=== PATIENT | female | born 1940 | race Caucasian/White ===

== ENCOUNTER 2023-10-09 12:51 | Outpatient (AMB) | payer OTHER, SELFPAY ==
[2023-10-09 12:57] VITALS: BP 126/72; PULSE 80; TEMP 36.1; O2SAT 99; BMI 26.9
--- NOTE | 2023-10-09 12:57 | AM.OFFWIN_ITS ---
Intake Vital Signs 10/09/23 12:57 Height 4 ft 11 in Weight 133 lb BMI 26.9 BP 126/72 Blood Pressure Location Lt brachial Position Sitting Pulse 80 Pulse Source Pulse Oximeter Temp 97.0 F Temp Source Temporal Artery Scan Pulse Oximetry (%) 99 Oxygen Delivery Method Room Air Intake Visit Reasons: ASSEMBLER cough, sob, mucus Intake Note: pt is here today for cough sob mucus started 3 days ago Patient Tobacco Use Status: Never used Tobacco Allergies amoxicillin Allergy (Mild, Verified 10/09/23 13:02) sores Do you need a note to return to daycare/school/sports/work: No HPI HPI Comments History of Present Illness Details 82 y/o female patient who presents to [facility] clinic with c/o productive cough, SOB and chest congestion x 3 days. Pt denies chronic lung conditions. She was seen by her PCP 3 months ago for similar symptoms. She was then treated with Z-pack and steroids. PFS Social History Patient Tobacco Use Status: Never used Tobacco Review of Systems Const All systems reviewed & are unremarkable except as noted in HPI and below Physical Exam Vital Signs: Last Vital Signs Temp 97.0 F 10/09/23 12:57 Pulse 80 10/09/23 12:57 BP 126/72 10/09/23 12:57 Pulse Ox 99 10/09/23 12:57 Oxygen Delivery Method Room Air 10/09/23 12:57 BMI result Body Mass Index 26.9 Const General: comfortable and no acute distress Nutritional Appearance: overweight Orientation/consciousness: patient oriented x3 HEENT Head: Yes normocephalic Ears: external ears normal General nose exam: Normal nasal mucous membranes and turbinates present Face and sinus: Yes sinuses nontender Mouth: moist mucous membranes Throat: Yes posterior oropharynx normal Resp Effort & Inspection: normal respiratory effort and Actively coughing Auscultation: no crackles, no rales, rhonchi and wheezes Cardio Rate: regular rate Rhythm: regular rhythm Neuro General: patient oriented x3, gait normal and moves all extremities Psych Speech and movement: Normal speech and movement present Assessment & Plan Assessment & Plan (1) Cough in adult: Code(s): R05.9 - Cough, unspecified Plan: - Chest Xray - Take medications as directed - F/U with PCP Orders: Orders XR chest 2V Today R05.9 - Cough, unspecified Medications: New azithromycin 500 mg PO DAILY 3 days 3 tabs 0RF cough R05.9 - Cough, unspecified doxycycline hyclate 100 mg PO BID 10 days 20 caps 0RF R05.9 - Cough, unspecified prednisone 50 mg PO DAILY 5 days 5 tabs 0RF cough R05.9 - Cough, unspecified benzonatate 100 mg PO TID 30 caps 0RF cough R05.9 - Cough, unspecified fluticasone propion-salmeterol 100-50 mcg/dose (Advair Diskus) 1 inh inhalation BID 60 ea 0RF Wheezing R05.9 - Cough, unspecified, R06.2 - Wheezing Coding Level of Care Code New Pt Level 4 (66877) Diagnoses Cough in adult R05.9 Time Spent (min) 20
== END 2023-10-09 14:23 | disposition home or self-care (01) ==
PROVIDERS: Visit Provider Nurse Practitioner Family
DX: R05.9 Cough, unspecified (principal)
CPT/HCPCS: 99204

== ENCOUNTER 2023-10-09 13:25 | Outpatient (REF) | payer OTHER, SELFPAY ==
--- NOTE | ~2023-10-09 | XR_ITS ---
EXAMINATION: XR CHEST CLINICAL INFORMATION: Cough unspecified COMPARISON: None available. TECHNIQUE: 2 views of the chest were obtained. FINDINGS: Moderate cardiomegaly with normal caliber pulmonary vessels. No pleural effusion. Lungs grossly are clear. The aorta is quite tortuous. XR/XR chest 2V IMPRESSION: Chronic changes observed. No active disease. No consolidations are seen.
== END 2023-10-09 13:26 | disposition home or self-care (01) ==
LOC: HO.HMGCX 13:25
PROVIDERS: PCP Nurse Practitioner Family; Visit Provider Nurse Practitioner Family
DX: R05.9 Cough, unspecified (principal)
CPT/HCPCS: 71046

== ENCOUNTER 2025-04-15 18:12 | Emergency (ER) | payer OTHER, SELFPAY ==
--- NOTE | ~2025-04-15 | XR_ITS ---
CLINICAL HISTORY: cough 1 view chest x-ray. Comparison: 10/09/2023 Findings: No consolidation or effusion. Cardiac and mediastinal contours appear stable. Bones reveal similar significant dextroconvex curvature of the lower thoracic spine. Impression: 1. No acute pulmonary disease. This document has been electronically signed by: Faisal Willis MD on 04/15/2025 19:15:36
[2025-04-15 18:41] VITALS: BP 158/89; PULSE 83; RESP 18; TEMP 36.7; O2SAT 93; BMI 24.6
--- NOTE | 2025-04-15 18:42 | ED_ITS ---
HPI - SOB/Dyspnea General Chief Complaint: General Medical Stated Complaint: flu +, shortness of breath Time Seen by Provider: 04/15/25 21:03 Source: patient and family Mode of arrival: ambulatory Limitations: no limitations History of Present Illness ED Provider: Dr. Isadora Short HPI Narrative: Patient comes to the emergency room complaining of cough and wheezing for several weeks. Patient states that she was recently diagnosed with influenza A. Patient states that her PCP sent prednisone and albuterol inhalers to the pharmacy. Patient continuous coughing. Patient states that the prednisone did not mix well with her sulfasalazine and has had a lot of diarrhea. Patient states that she stopped taking prednisone. Patient states that the main reason she came is because her PCP asked her to come to get checked to make sure that she is okay. Related Data Home Medications ?Medication ?Instructions ?Recorded ?Confirmed losartan 50 mg-hydrochlorothiazide 1 tab PO DAILY 09/26 07/19 12.5 mg tablet sulfasalazine 500 mg tablet 1,000 mg PO BID 10/09/23 Previous Rx's ?Medication ?Instructions ?Recorded azithromycin 500 mg tablet 500 mg PO DAILY cough 3 day s #3 10/09/23 tabs benzonatate 100 mg capsule 100 mg PO TID cough #30 cap s 10/09/23 doxycycline hyclate 100 mg capsule 100 mg PO BID 10 da ys #20 caps 10/09/23 fluticasone 100 mcg-salmeterol 50 1 inh inhalation BID Wheezing #60 10/09/23 mcg/dose blistr powdr for ea inhalation (Advair Diskus) prednisone 50 mg tablet 50 mg PO DAILY cough 5 days #5 tabs 10/09/23 budesonide 180 mcg/actuation 1 inh inhalation BID #1 e a 04/15/25 breath activated powder inhaler Allergies Allergy/AdvReac Type Severity Reaction Status Date / Time amoxicillin Allergy Mild sores Verified 04/15/25 18:42 Review of Systems 2 Review of Systems: Constitutional : No Weight loss, No Fever, No Chills, No Night Sweats, No Fatigue, No Malaise ENT/Mouth : No Hearing loss, No Ear Pain, No Nasal Congestion, No Sinus Pain, No Hoarseness, No sore throat, No Rhinorrhea, No Swallowing Difficulty Eyes: No Eye Pain, No Swelling, No Redness, No Foreign Body, No Discharge, No Vision Changes Cardiovascular : No Chest Pain, No SOB, No Dyspnea on Exertion, No Orthopnea, No Edema, No Palpitations Respiratory : Cough, wheezing No Smoke Exposure, No Dyspnea Gastrointestinal : No Nausea, No Vomiting, No Diarrhea, No Constipation, No abdominal Pain, No Hematochezia, No Melena Genitourinary : no irregular bleeding, No Dysuria, No Urinary Frequency, No Hematuria, No Urinary Incontinence, No Urgency, No Flank Pain, No Urinary Flow Changes, No Hesitancy Musculoskeletal : No joint pain, No Myalgias, No Joint Swelling Skin : No Skin Lesions, No rash Neuro : No Weakness, No Numbness, No Paresthesias, No Loss of Consciousness, No Dizziness, No Headache Psych : No Anxiety/Panic, No Depression, No SI/HI/AH/VH, No Social Issues, Heme/Lymph: No Bruising, No Bleeding,No Lymphadenopathy Endocrine : No Polyuria, No Polydipsia, No Temperature Intolerance [facility] Social History Social History Patient Tobacco Use Status: Never used Tobacco Advance Directives: No Advance Directives Information Provided: No Do you have a plan to hurt others: No Plan Physical Exam 2 Exam: Exam: Appearance: Alert. Oriented X3. No acute distress. Eyes: Pupils equal, round and reactive to light. ENT: Pharynx normal. Neck: Normal inspection. Neck supple. No lymph nodes noted. No crepitus CVS: Normal heart rate and rhythm. Pulses normal. Normal S1 and S2 Respiratory: No respiratory distress. Breath sounds normal. No Wheezing. No rales Abdomen: Soft and nontender. No rigidity. No distention. Skin: Skin warm and dry. Normal skin color. Normal skin turgor. Extremities: No lower extremity edema. No Lacerations. No Rash Neuro: Oriented X 3. No motor deficit. No sensory deficit. Moving all extremities. No slurred speech. CN 2 through 12 grossly intact Psych: calm, cooperative, normal affect Vital Signs: Vital Signs: Last Vital Signs Temp 98.3 F 04/15/25 21:00 Pulse 81 04/15/25 21:00 Resp 20 04/15/25 21:00 BP 163/93 H 04/15/25 21:00 Pulse Ox 96 04/15/25 21:00 O2 Del Method Room Air 04/15/25 21:00 BMI result Body Mass Index 24.6 Course Course Course Narrative: This is a Rapid Medical Exam performed in triage by More Eckert PA-C. Full HPI, ROS and PE to be performed by primary ED provider. 84 yo F presenting to the ED c/o Influenza A positive as of Friday (seen by PCP) - reports continued cough, wheezing - sent in by PCP for further eval PE: NAD, n ontoxic appearing, talking in complete sentences Plan: EKG, Labs, CXR Medical Decision Making Medical Decision Making [facility] Narrative: Interpretation of EKG: Sinus rhythm, heart rate 78, no ST segment patient elevation, nonspecific T-wave inversion, QTC 428 My interpretation of labs: No significant abnormality in patient's hematology chemistry, troponin negative Chest x-ray shows no acute pulmonary disease At this time, patient had no wheezing, no shortness of breath, oxygen saturation 99% on room air. Patient declined any cough medication. To decrease the use of albuterol, patient was offered a budesonide inhaler, discussed with the patient that she needs to swish and spit/remains her mouth. Patient states that she has had in the past did not have any adverse effects. Patient agrees with plan. Lab Data [facility] Lab Attestation statement: I reviewed the patient's lab results. 04/15/25 19:23 04/15/25 19:23 Labs: Lab Results 04/15/25 Range/Units 19:23 WBC 4.4 L (4.8-10.8) X10*3/uL RBC 4.19 L (4.20-5.50) X10*6/uL Hgb 12.4 (12.0-16.0) g/dl Hct 35.8 L (37.0-47.0) % MCV 85.4 (80.0-98.0) fL MCH 29.6 (27.0-33.0) pg MCHC 34.6 (31.0-35.0) g/dl RDW 13.6 (11.0-16.0) % Plt Count 198 (160-400) X10*3/uL MPV 10.0 (9.4-12.3) fL Immature Gran % (Auto) 0.2 (0.0-0.4) % Neut % (Auto) 39.8 L (45-73) % Lymph % (Auto) 45.9 H (20-40) % Cache % (Auto) 13.1 H (2-11) % Eos % (Auto) 0.5 (0-4) % Baso % (Auto) 0.5 (0-2) % Lymph # (Auto) 2.0 (1.2-4.9) X10*3/uL Cache # (Auto) 0.6 (0.1-1.2) X10*3/uL Eos # (Auto) 0.0 (0.0-0.4) X10*3/uL Baso # (Auto) 0.0 (0.0-0.2) X10*3/uL Abs Immat Gran (auto) 0.01 (0.00-0.03) X10*3/uL Absolute Neuts (auto) 1.7 L (2.0-8.3) x10*3/uL Absolute Nucleated RBC 0.000 (0.0-0.012) X10*3/uL Nucleated RBC % (auto) 0.0 (0.0-0.2) /100WBC Sodium 139 (135-145) mmol/L Potassium 3.9 (3.3-5.1) mmol/L Chloride 105 (96-108) mmol/L Carbon Dioxide 26 (22-29) mmol/L Anion Gap 12 (12-20) BUN 14 (9-16) mg/dL Creatinine 0.67 (0.5-1.4) mg/dL Estim Creat Clear Calc 52.5 Estimated GFR > 60 Random Glucose 91 (60-115) mg/dL Calcium 9.1 (8.4-10.2) mg/dL Magnesium 2.0 (1.6-2.6) mg/dL Total Bilirubin 0.4 (0.0-1.0) mg/dL Direct Bilirubin 0.1 (0.0-0.5) mg/dL AST 28 (5-31) U/L ALT 26 (0-31) U/L Alkaline Phosphatase 79 (39-117) U/L Troponin I High Sens 11.7 (<3.5-17.0) ng/L Total Protein 6.7 (6.5-8.0) g/dL Albumin 4.3 (3.5-5.0) g/dL Independent Interpretation I performed an independent interpretation of an: EKG and Plain X-Ray Radiology Impression Discussion of test interpretation with radiology: I have reviewed the radiologist's reading. Radiologist Impression: No consolidation or effusion. Cardiac and mediastinal contours appear stable. Bones reveal similar significant dextroconvex curvature of the lower thoracic spine. Discharge Plan Discharge Clinical Impression: Bronchitis Patient Disposition: Home, Self-Care Instructions: Acute Bronchitis (ED) Additional Instructions: Please follow-up with your primary care physician tomorrow. If you have any worsening or new symptoms, please return to the emergency room or call 911 Prescriptions: New budesonide 180 mcg/actuation aerosol powdr breath activated 1 inh inhalation BID Qty: 1 0RF No Action losartan-hydrochlorothiazide 50-12.5 mg tablet 1 tab PO DAILY sulfasalazine 500 mg tablet 1,000 mg PO BID azithromycin 500 mg tablet 500 mg PO DAILY 3 Days Qty: 3 0RF doxycycline hyclate 100 mg capsule 100 mg PO BID 10 Days Qty: 20 0RF prednisone 50 mg tablet 50 mg PO DAILY 5 Days Qty: 5 0RF benzonatate 100 mg capsule 100 mg PO TID Qty: 30 0RF fluticasone propion-salmeterol [Advair Diskus] 100-50 mcg/dose blister with device 1 inh inhalation BID Qty: 60 0RF Print Language: Ukrainian
--- NOTE | 2025-04-15 18:44 | ECG_ITS ---
Test Reason : sob Blood Pressure : */* mmHG Vent. Rate : 78 BPM Atrial Rate : 78 BPM P-R Int : 120 ms QRS Dur : 72 ms QT Int : 376 ms P-R-T Axes : 20 -28 35 degrees QTcB Int : 428 ms Normal sinus rhythm Nonspecific ST abnormality Abnormal ECG No previous ECGs available Referred By: More Eckert Electronically Signed By: Valdez Colindres
[2025-04-15 19:30] LABS: MANUAL DIFF FLAG NO
[2025-04-15 19:31] LABS: Hematocrit 35.8 % (37.0-47.0); Hemoglobin 12.4 g/dl (12.0-16.0); Imm Gran Abs Auto 0.01 X10*3/uL (0.00-0.03); Imm Gran Pct Auto 0.2 % (0.0-0.4); Lymphocytes Absolute Auto 2.0 X10*3/uL (1.2-4.9); Mean Corpuscular HGB Conc 34.6 g/dl (31.0-35.0); Mean Corpuscular Hemoglobin 29.6 pg (27.0-33.0); Mean Corpuscular Volume 85.4 fL (80.0-98.0); NRBC Abs Auto 0.000 X10*3/uL (0.0-0.012); NRBC Pct Auto 0.0 /100WBC (0.0-0.2); Platelet Count 198 X10*3/uL (160-400); Red Blood Count 4.19 X10*6/uL (4.20-5.50); White Blood Count 4.4 X10*3/uL (4.8-10.8)
[2025-04-15 19:55] LABS: Troponin-I High Sensitivity 11.7 ng/L (<3.5-17.0)
[2025-04-15 20:02] LABS: Alanine Aminotransferase 26 U/L (0-31); Albumin Level 4.3 g/dL (3.5-5.0); Alkaline Phosphatase 79 U/L (39-117); Anion Gap 12 (12-20); Aspartate Amino Transferase 28 U/L (5-31); Blood Urea Nitrogen 14 mg/dL (9-16); Calcium 9.1 mg/dL (8.4-10.2); Carbon Dioxide 26 mmol/L (22-29); Chloride 105 mmol/L (96-108); Creatinine Clr Calc Pharmacy 52.5; Estimated Glomerular Filt Rate > 60; Magnesium 2.0 mg/dL (1.6-2.6); Potassium 3.9 mmol/L (3.3-5.1); Sodium 139 mmol/L (135-145); Total Protein 6.7 g/dL (6.5-8.0)
[2025-04-15 21:00] VITALS: BP 163/93; PULSE 81; RESP 20; TEMP 36.8; O2SAT 96
--- OUTSIDE RECORDS SUMMARY | 2025-04-15 21:03 | XMS_ITS | Encounter Summary ---
Author Organization [facility] Address [address] [facility] [address] [place] [address] Phone Care Team Providers Care Animal Treatment Investigator Name Role Phone Giovanna Almeida NP Primary Care Provider [phone]- [phone] Encounter Details Date Type Department Care Team (Latest Contact Info) Description 04/30/2018 Transcribe Orders [facility] [place] [address] [place] [address] Gwyn Cardenas MD [address] [address] [email or web address] Colitis (Primary Dx) Social History Tobacco Use Types Packs/Day Years Used Date Smoking Tobacco: Never Assessed Comments Unknown Sex and Gender Information Value Date Recorded Sex Assigned at Not on file Legal Sex Female 1:42 PM EST Gender Identity Not on file Sexual Orientation Not on file documented as of this encounter Plan of Treatment Not on file documented as of this encounter Results * C-Reactive Protein (04/30/2018 1:49 PM EST) C REACTIVE PROTEIN 3.3 0.0 - 4.0 mg/L [facility] Blood 04/30/2018 1:49 PM EST 04/30/2018 1:53 PM EST us Gwyn Cardenas MD LAB BLOOD BKR ORDERABLES Final Result [facility] [address] [place] [address] * Comprehensive metabolic panel (04/30/2018 1:49 PM EST) SODIUM 142 133 - 146 mmol/L [facility] POTASSIUM 4.1 3.3 - 5.1 mmol/L [facility] CHLORIDE 104 96 - 108 mmol/L [facility] CO2 26 21 - 35 mmol/L [facility] BUN 18 6 - 19 mg/dL [facility] CREATININE 0.50 0.5 - 1.5 mg/dL [facility] GLUCOSE 89 70 - 99 mg/dL [facility] ALBUMIN 4.4 3.9 - 4.8 g/dL [facility] TOTAL PROTEIN 6.8 6.5 - 8.0 g/dL [facility] CALCIUM 9.8 8.4 - 10.3 mg/dL [facility] ALKALINE PHOSPHATASE 72 39 - 117 U/L [facility] TOTAL BILIRUBIN 0.4 0.0 - 1.2 mg/dL [facility] AST 15 0 - 37 U/L [facility] ALT 13 0 - 40 U/L [facility] GLOBULIN 2.4 1 - 4.8 g/dL [facility] EGFR 94 >59 mL/min/1.7 3m2 [facility] Comment:If patient is black, multiply result by 1.159. Estimated glomerular filtration rate calculated using the CKD-EPI equation. ANION GAP 16 10 - 20 mmol/L [facility] Blood 04/30/2018 1:49 PM EST 04/30/2018 1:53 PM EST us Gwyn Cardenas MD LAB BLOOD BKR ORDERABLES Final Result Performing Organization Address City/State/[facility] Co de Phone Number [address] [address] * CBC (04/30/2018 1:49 PM EST) WBC 6.55 3.40 - 11.20 K/uL [facility] RBC 4.42 3.80 - 4.80 M/uL [facility] HGB 12.9 12.0 - 15.0 g/dL [facility] HCT 39.7 36.0 - 46.0 % [facility] PLT 206 130 - 400 K/uL [facility] MCV 89.8 79.0 - 98.0 fL [facility] MCH 29.2 27.0 - 34.8 pg [facility] MCHC 32.5 31.5 - 36.0 g/dL [facility] RDW 13.6 10.8 - 14.6 % [facility] MPV 10.8 9.4 - 12.4 fl [facility] NRBC 0.00 0.00 /100 WBCs [facility] ABSOLUTE NRBC 0.00 0.00 K/uL [facility] Blood 04/30/2018 1:49 PM EST 04/30/2018 1:53 PM EST us Gwyn Cardenas MD LAB BLOOD BKR ORDERABLES Final Result Performing Organization Address City/State/[facility] Co de Phone Number [address] [address] documented in this encounter Visit Diagnoses Diagnosis Colitis- Primary Other and unspecified noninfectious gastroenteritis and colitis documented in this encounter Care Teams Animal Treatment Investigator Relationship Specialty Start Date End Date Giovanna Almeida NP [address] [place] [address] PCP - General Family Medicine 04/30/18 documented as of this encounter Additional Source Comments The information contained in this document represents components of the legal health record. It is not the complete legal health record.[facility]
--- OUTSIDE RECORDS SUMMARY | 2025-04-15 21:03 | XMS_ITS | Patient Health Record ---
[facility] Address [address] [place] [address] Care Team Providers Care Visitor Services Coordinator Name Role Phone Juan Pablo ESTEVEZ, Giovanna Primary Care Provider Unavail able JamesBelkis ibrahim Unavailable [phone] Allergies No Known Allergies Reason For Referral No Information Medications Medication SIG (Take, Route, Frequency, Duration) Notes Start Date End Date Status sulfaSALAzine Active Losartan Potassium 25 MG 1 tablet Orally Once a day; Duration: 30 day(s) Active Social History Tobacco Use: Social History Observation Description Date Details (start date - stop date) Former Smoker NA - NA Tobacco Use/Smoking Question Answer Notes Are you a: former smoker Additional Findings: Tobacco Non-User Current no n-smoker Alcohol Screen Question Answer Notes Did you have a drink containing alcohol in the p ast year? No Points 0 Interpretation Negative Tobacco use other than smoking: Question Answer Notes Are you an other tobacco user? No Problems Problem Type SNOMED Code ICD Code Onset Dates Problem Status W/U Status Risk Notes Problem Acquired hammer toe of right foot (4418210163883 105) Hammer toe of right foot (M20.41) Active confirmed Problem Acquired hammer toe of left foot (2483510273903 103) Hammer toe of left foot (M20.42) Active confirmed Plan Of Treatment No Information Insurance Providers Payer Name Payer Address Payer Phone Subscriber Number Group Number Insured Name Patient Relationship to Insured Coverage Start Date Coverage End Date [employer] 65 Medicare Preferred [address] [place] [address] [phone] [id number] Alesia Jamil Self - patient is the insured Medical (General) History Medical History History ICD Code Colitis High blood pressure Multiple sclerosis Surgical History Surgery Date(Month/Year)
--- OUTSIDE RECORDS SUMMARY | 2025-04-15 21:03 | XMS_ITS | Clinical Summary ---
Author Organization [facility] Address [address] [facility] [address] [place] [address] Phone Care Team Providers Care Client Services Coordinator Name Role Phone Giovanna Almeida CONTROL CABINET ASSEMBLER Primary Care Provider [phone]- [phone] Social History Tobacco Use Types Packs/Day Years Used Date Smoking Tobacco: Never Assessed Education Answer Date Recorded Are you interested in more education? Not on rina e 08/23/2022 Are you concerned about learning? Not on file 08/23/2022 No 08/23/2022 No 08/23/2022 Digital Access Answer Date Recorded No 09/21/2022 No 09/21/2022 No 09/21/2022 Reliable internet access at home? Not on file 09/21/2022 Device with a working camera? Not on file Comments Unknown Sex and Gender Information Value Date Recorded Sex Assigned at Not on file Legal Sex Female 1:42 PM EST Gender Identity Not on file Sexual Orientation Not on file Plan of Treatment Health Maintenance Due Date Last Done Comments Adult Td,Tdap Booster 1940 DEPRESSION SCREENING 1953 PNEUMOCOCCAL VACCINES (50+ y ears) (1 of 1 - PCV) 11/17/1991 ZOSTER VACCINES (1 of 2) 11/17/1991 OSTEOPOROSIS SCREENING INITI AL (ONE-TIME) 2006 RSV VACCINE (1 - 1-dose 75+ series) 2016 INFLUENZA VACCINE (#1) 2024 COVID-19 VACCINE (2 - 2024-2 6 season) 2024 06/29/2020 HEPATITIS A VACCINES Aged Out No long er eligible based on patient's age to complete this topic HIB VACCINES Aged Out No longer eligi ble based on patient's age to complete this topic MENINGOCOCCAL VACCINES (ACWY) Aged Out No longer eligible based on patient's age to complete this topic MENINGOCOCCAL VACCINES (B) Aged Out N o longer eligible based on patient's age to complete this topic Medical Devices Not on file Insurance MEDICARE PART A & B [place] MEDICARE PART A & B [facility] MEDICARE HMO BLUE REPLACEMENT MEDICARE PART A & B [facility] MEDICARE HMO BLUE REPLACEMENT MEDICARE PART A & B [facility] MEDICARE HMO BLUE REPLACEMENT MEDICARE PART A & B [facility] MEDICARE HMO BLUE REPLACEMENT MEDICARE PART A & B [facility] MEDICARE HMO BLUE REPLACEMENT MEDICARE PART A & B [facility] MEDICARE HMO BLUE REPLACEMENT MEDICARE PART A & B Member Subscriber Plan / Payer (Ef fective 2006-Present) Name:Alesia Jamil Member ID:[id number] Relation to Subscriber:Self Name:Alesia Jamil Subscriber ID:[id number] Payer ID:[id number] Group ID:Not on file Type:Medicare Address: [employer] [address] [place], [place] [id number] [place] [address] MEDICARE HMO BLUE REPLACEMENT MEDICARE PART A & B [facility] MEDICARE HMO BLUE REPLACEMENT Care Teams Client Services Coordinator Relationship Specialty Start Date End Date Giovanna Almeida NP [address] [place] [address] PCP - General Family Medicine 04/30/18 Additional Source Comments The information contained in this document represents components of the legal health record. It is not the complete legal health record.[facility]
--- OUTSIDE RECORDS SUMMARY | 2025-04-15 21:03 | XMS_ITS | Encounter Summary ---
Author Organization [facility] Address [address] [place] [address] Phone Care Team Providers Care Health Insurance Assessor Name Role Phone Giovanna Almeida PAINTER ROUGH Primary Care Provider +1- [phone] Encounter Details Date Type Department Care Team (Latest Contact Info) Description 12/01/2020 Transcribe Orders Virtual Department [address] [place] [address] Gwyn Cardenas MD [address] [place] [address] [email or web address] Indeterminate colitis (Primary Dx) Social History Tobacco Use Types Packs/Day Years Used Date Smoking Tobacco: Never Assessed Comments Unknown Sex and Gender Information Value Date Recorded Sex Assigned at Not on file Legal Sex Female 1:42 PM EST Gender Identity Not on file Sexual Orientation Not on file documented as of this encounter Plan of Treatment Not on file documented as of this encounter Visit Diagnoses Diagnosis Indeterminate colitis- Primary Other and unspecified noninfectious gastroenteritis and colitis documented in this encounter Care Teams Health Insurance Assessor Relationship Specialty Start Date End Date Giovanna Almeida NP [address] [place] [address] PCP - General Family Medicine 04/30/18 documented as of this encounter Additional Source Comments The information contained in this document represents components of the legal health record. It is not the complete legal health record.[facility]
[2025-04-15 21:46] VITALS: BP 163/93; PULSE 81; RESP 20; TEMP 36.8; O2SAT 96
== END 2025-04-15 21:47 | disposition home or self-care (01) ==
PROVIDERS: Physician Assistant; Emergency Provider Emergency Medicine; PCP Nurse Practitioner Family
DX: J10.1 Influenza due to other identified influenza virus with other respiratory manifestations (principal); J40 Bronchitis, not specified as acute or chronic
CPT/HCPCS: 36415; 71045; 80048; 80076; 83735; 84484; 85025; 93005; 99283; 99284

== ENCOUNTER → 2025-04-15 18:44 | Outpatient (BNV) | payer OTHER, SELFPAY | PROVIDERS: Emergency Provider Emergency Medicine; PCP Nurse Practitioner Family; Visit Provider Internal Medicine Cardiovascular Disease | DX: R94.31 Abnormal electrocardiogram [ECG] [EKG] (principal); R06.02 Shortness of breath | CPT/HCPCS: 93010 ==

== ENCOUNTER → 2025-04-15 18:44 | Outpatient (BNV) | payer OTHER, SELFPAY | PROVIDERS: PCP Nurse Practitioner Family; Visit Provider Radiology Diagnostic Radiology | DX: R05.9 Cough, unspecified (principal) | CPT/HCPCS: 71045 ==